=== PATIENT | male | born 1985 | race Caucasian/White ===

== ENCOUNTER 2017-07-27 09:53 | Emergency (ER) | payer OTHER ==
[~2017-07-27] VITALS: Ht 188 cm; Wt 102.3 kg
[~2017-07-27 09:53] MED LIST: LISI10TA4 PO; ZANA4CAP PO
[2017-07-27] MEDS ORDERED: D 50CAP (10:09)
[2017-07-27] MEDS ORDERED: VITA100T98 (10:09)
[2017-07-27] MEDS ORDERED: GLUC750T2 (10:09)
[2017-07-27] MEDS ORDERED: VITA10002 (10:09)
[2017-07-27] MEDS ORDERED: CETI10TA (10:09)
[2017-07-27] MEDS ORDERED: VENTAER IN (11:56)
[2017-07-27] MEDS ORDERED: FLON1SPR (11:56)
[2017-07-27 11:57] VITALS: BP 138/67
== END 2017-07-27 12:01 | disposition home or self-care (01) ==
LOC: M ED 09:53
DX: J01.90 Acute sinusitis, unspecified (principal); Z72.0 Tobacco use